=== PATIENT | male | born 1945 | race Caucasian/White ===

== ENCOUNTER → 2023-09-17 08:32 | Outpatient (REF) | payer MEDICARE, OTHER, SELFPAY ==
[2023-09-17 11:37] LABS: Urine Albumin Negative (Neg - Trace); Urine Bilirubin Negative (Negative); Urine Character Clear (Clear); Urine Color Yellow; Urine Glucose Negative (Negative); Urine Ketone Negative (Negative); Urine Leukocyte Negative (Negative); Urine Nitrite Negative (Negative); Urine Occult Blood Negative (Negative); Urine Urobilinogen Negative (Neg - 1+)
[2023-09-17 11:39] LABS: % Basophils 0.9 % (0-2); % Eosinophils 2.2 % (0-6); % Immature Granulocytes 0.2 % (0-0.5); % Lymphocytes 31.4 % (20.5-51.1); % Monocytes 13.6 % (1.7-9.3); % Neutrophils 51.7 % (42.2-75.2); Absolute Basophils 0.1 10^3/uL (0-0.2); Absolute Eosinophils 0.1 10^3/uL (0-0.7); Absolute Lymphocytes 1.7 10^3/uL (1.2-3.4); Absolute Monocytes 0.8 10^3/uL (0.1-0.6); Absolute Neutrophils 2.9 10^3/uL (1.4-6.5); Hematocrit 41.9 % (39.0-52.0); Hemoglobin 14.3 g/dL (13.0-18.0); Mean Corp Hgb Conc. 34.1 g/dL (33.0-37.0); Mean Corpuscular Hgb 33.7 pg (27.0-31.0); Mean Corpuscular Volume 98.8 fL (80.0-94.0); Mean Platelet Volume 10.1 fL (7.4-10.4); Nucleated Red Blood Cells % 0 % (-); Platelet Count 194 10^3/uL (130-400); Red Blood Cell Count 4.24 10^6/uL (4.70-6.10); White Blood Cell Count 5.5 10^3/uL (4.8-10.8)
[2023-09-17 12:08] LABS: ALT (SGPT) 25 U/L (0-50); AST (SGOT) 26 U/L (17-59); Albumin 4.2 g/dl (3.5-5.0); Alkaline Phosphatase 84 U/L (38-126); Blood Urea Nitrogen 18 mg/dl (9-20); Calcium 9.4 mg/dl (8.4-10.2); Carbon Dioxide 25 mmol/L (22-30); Chloride 108 mmol/L (98-107); Glucose 108 mg/dl (70-99); HDL Cholesterol 38 mg/dl; LDL Cholesterol, Calculated 53 mg/dl; Potassium 4.8 mmol/L (3.5-5.1); Sodium 140 mmol/L (135-145); Total Bilirubin 0.9 mg/dl (0.2-1.3); Total Cholesterol 123 mg/dl (50-199); Total Protein 6.6 g/dl (6.3-8.2); Triglyceride 162 mg/dl (10-149); Very Low Density Lipoprotein 32 mg/dl (0-30); eGFR > 60.00
== END ==
LOC: HWLAB 08:32
PROVIDERS: ATTENDING PHYSICIAN Internal Medicine
DX: E87.5 Hyperkalemia (principal); E78.2 Mixed hyperlipidemia; I34.0 Nonrheumatic mitral (valve) insufficiency; E66.9 Obesity, unspecified; I10 Essential (primary) hypertension; D07.5 Carcinoma in situ of prostate; I25.10 Atherosclerotic heart disease of native coronary artery without angina pectoris
CPT/HCPCS: 36415; 80053; 80061; 81003; 83036; 84153; 84154; 85025

== ENCOUNTER 2023-11-23 10:34 | Emergency (ER) | payer MEDICARE, OTHER, SELFPAY ==
[2023-11-23 10:42] VITALS: BP 140/83
[2023-11-23 10:54] VITALS: BMI 32.9
[2023-11-23 11:00] VITALS: BP 139/86
[2023-11-23 11:15] LABS: % Basophils 0.7 % (0-2); % Eosinophils 1.8 % (0-6); % Immature Granulocytes 0.2 % (0-0.5); % Lymphocytes 29.2 % (20.5-51.1); % Monocytes 15.8 % (1.7-9.3); % Neutrophils 52.3 % (42.2-75.2); Absolute Eosinophils 0.1 10^3/uL (0-0.7); Absolute Lymphocytes 1.6 10^3/uL (1.2-3.4); Absolute Monocytes 0.9 10^3/uL (0.1-0.6); Absolute Neutrophils 2.9 10^3/uL (1.4-6.5); Hematocrit 44.9 % (39.0-52.0); Hemoglobin 15.3 g/dL (13.0-18.0); Mean Corp Hgb Conc. 34.1 g/dL (33.0-37.0); Mean Corpuscular Hgb 34.7 pg (27.0-31.0); Mean Corpuscular Volume 101.8 fL (80.0-94.0); Mean Platelet Volume 9.8 fL (7.4-10.4); Nucleated Red Blood Cells % 0 % (-); Platelet Count 177 10^3/uL (130-400); Red Blood Cell Count 4.41 10^6/uL (4.70-6.10); Red Cell Dist. Width 13.2 % (11.5-14.5); White Blood Cell Count 5.6 10^3/uL (4.8-10.8)
[2023-11-23 11:27] LABS: ALT (SGPT) 23 U/L (0-50); AST (SGOT) 28 U/L (17-59); Albumin 4.2 g/dl (3.5-5.0); Alkaline Phosphatase 82 U/L (38-126); Blood Urea Nitrogen 18 mg/dl (9-20); Calcium 9.6 mg/dl (8.4-10.2); Carbon Dioxide 26 mmol/L (22-30); Chloride 106 mmol/L (98-107); Estimated Creatinine Clearance 69 ml/min; Glucose 98 mg/dl (70-99); Lipase 95 U/L (23-300); Potassium 4.7 mmol/L (3.5-5.1); Sodium 143 mmol/L (135-145); Total Protein 6.8 g/dl (6.3-8.2); eGFR > 60.00
[2023-11-23 11:38] LABS: Troponin I < 0.012 ng/ml
[2023-11-23] MEDS: TYLENOL 650 MG PO (12:02)
[2023-11-23] MEDS: MAALOX 30 ML PO (12:03)
--- NOTE | 2023-11-23 12:33 | ED.GENMED ---
History of Present Illness
General
Chief Complaint: Chest Pain
Time Seen by Provider: 11/23/23 11:00
History of Present Illness
History of Present Illness:
78-year-old male with history of permanent atrial fibrillation on Eliquis presents to the emergency department for eval ration of chest pain shortness of breath that began this morning when he woke up approximately 3 hours prior to. Patient reports
the pain is centrally located, feels like indigestion. Denies any radiation of the pain or any worsening with exertion or deep breathing. Denies any back pain nausea, vomiting. Compliant with his anticoagulants. Also reports that he recently
experienced the of a close friend and is expecting to sign her tonight
Past History
Past History
ED Past Medical History: Arrthythmia (Chronic atrial fibrillation), Cancer (Skin cancer), GERD, HTN, Hypercholesterolemia, Valvular disease (Mitral regurgitation), Psychiatric (Anxiety) and Other (BPH, dizziness); Negative IDDM
ED Past Surgical History: Negative Cardiac
Social History
Tobacco: Non-smoker
Alcohol: None
Drug: None
Personal:
Living: with family
Employment: Retired
Family History
Family History: Other (non contributory)
Review of Systems
Review of Systems
Allergies reviewed?: Yes
All Other Systems: ROS reviewed and negative except as documented in HPI and ROS
Phy Exam
Physical Exam
Physical Exam:
GEN: Well appearing, NAD, WDWN
Eyes: PERRLA, EOMs intact, no scleral icterus
HENT: NCAT, oral mucosa moist, no JVD, no cervical adenopathy.
Lungs: CTAB, no wheezes, rales, rhonchi, normal chest wall excursion
Cardiac: Irregular, normal rate, no M/R/G, no peripheral edema. Radial pulses 2+ bilat
Abdomen: S, NT, ND, NABS, no masses or hepatosplenomegaly
Neuro: AO x 3, no focal deficits to BUE/BLE, normal sensation throughout
MSK: No gross deformity or ecchymosis. No edema. No digital clubbing
Skin: No rashes, petechiae. Normal color, no pallor or jaundice.
Psych: Calm, cooperative, proper hygiene
Scores
Heart Score for Chest Pain Patients
STEMI patient?: No
History: Slightly or Non-Suspicious
ECG: Normal
Age: >/= 65 years
Risk Factors: >/= 3 Risk Factors or History of CAD
Troponin: </= Normal Limit
Heart Score for Chest Pain Patients: 4
Heart Score Risk: 20.3% MACE over next 6 weeks
Course
Orders/Labs/Results
Orders:
Orders
11/23/23 10:37
Electrocardiogram (*1) Urgent
Reason for Study: Chest Pain
EKG- Treatment ONCE
11/23/23 11:04
Complete Blood Count/With Diff Urgent
Comprehensive Metabolic Panel Urgent
Lipase Urgent
Troponin I Urgent
11/23/23 11:14
CR Chest - 2 Views Urgent
Comment:
Reason For Exam: chest pain
11/23/23 11:50
Acetaminophen [Tylenol] 650 mg PO NOW STA
Mag Hydrox/Al Hydrox/Simeth [Maalox] 30 ml PO NOW STA
11/23/23 12:01
EKG- Treatment ONCE
11/23/23 13:05
EKG [Electrocardiogram (*1)] Routine
Reason for Study: Chest Pain
11/23/23 13:17
Troponin I Routine
Abnormal Lab Results
11/23/23
11:04
RBC 4.41 L 10^6/uL
(4.70-6.10)
MCV 101.8 H fL
(80.0-94.0)
MCH 34.7 H pg
(27.0-31.0)
Absolute Monos (auto) 0.9 H 10^3/uL
(0.1-0.6)
Monocytes % 15.8 H %
(1.7-9.3)
11/23/23 11:04
11/23/23 11:04
Vital Signs
Initial and Last Documented VS:
Initial Vital Signs
Temp Pulse Resp BP Pulse Ox
98.4 F 90 18 140/83 95
11/23/23 10:42 11/23/23 10:42 11/23/23 10:42 11/23/23 10:42 11/23/23 10:42
Last Documented Vital Signs
Temp Pulse Resp BP Pulse Ox
98.4 F 86 39 139/86 97
11/23/23 10:42 11/23/23 11:15 11/23/23 11:15 11/23/23 11:00 11/23/23 11:15
MDM/Problems Addressed
MDM/Problems Addressed:
Patient's EKGs are nonischemic and initial and repeat troponins are negative. Pain does not sound anginal in nature nevertheless given his high risk and age will refer to cardiology through the chest pain hotline. Doubt PE as He is on
anticoagulants
*Critical Care Note
Total Time (30-74mins, 75-104mins- exclusive of procedures): Not Applicable
ED Attending Note
-
Portions of this chart may have been created with voice recognition software.� Occasional wrong word or��sound alike� substitutions may have occurred due to the inherent limitations of voice recognition software.
Discharge Plan
Departure
Patient Disposition: Home (Routine Discharge)
Date of Disposition: 11/23/23
Time of Disposition: 14:06
Patient with high blood pressure during this ER visit?: No
Discharge Problem:
Atypical chest pain
Instructions: Chest Pain CBC Follow Up
Prescriptions:
No Action
lovastatin 40 MG tablet
40 mg PO QPM
finasteride 5 MG tablet
5 mg PO DAILY
glucosamine HAd-vyl-zomqhloqho 1 EACH tablet
1 tab PO BID
meclizine 12.5 MG tablet
12.5 mg PO DAILYPRN PRN (Reason: As Needed)
apixaban [Eliquis] 5 MG tablet
5 mg PO BID Qty: 0 0RF
Rx Instructions:
Resume Wednesday, 10/07 in PM
lisinopril 10 MG tablet
10 mg PO BID
latanoprost 1 DROP drops
1 drp BOTH EYES HS
spironolactone 12.5 MG tablet
12.5 mg PO DAILY
famotidine 20 MG tablet
20 mg PO BID
metoprolol succinate 25 MG tablet extended release 24 hr
25 mg PO DAILY
finasteride 5 MG tablet
5 mg PO DAILY
Referrals:
Miguel Schrader DO [Family Provider] -
Interventions
Interventions:
*Risk Screen - Suicide Last Done: 11/23/23 10:55
*General Assessment Last Done: 11/23/23 10:55
*Neglect/Abuse Screening Last Done: 11/23/23 10:55
ED- Fall Risk Assessment Last Done: 11/23/23 10:55
*ED COVID-19 Vaccine History Last Done: 11/23/23 10:55
*Nursing Disposition Last Done: 11/23/23 14:14
ED- Cardiac Assessment Last Done: 11/23/23 10:55
Discharge Date and Time
Discharge Date/Time: 11/23/23 14:25
Print Language: BRITISH
[2023-11-23 14:03] LABS: Troponin I < 0.012 ng/ml
== END 2023-11-23 14:25 | disposition home or self-care (01) ==
LOC: EMR 10:34
PROVIDERS: Physician Assistant; EMERGENCY PHYSICIAN Emergency Medicine; FAMILY PHYSICIAN Internal Medicine
DX: R07.89 Other chest pain (principal); I48.20 Chronic atrial fibrillation, unspecified; E78.00 Pure hypercholesterolemia, unspecified; I10 Essential (primary) hypertension; K21.9 Gastro-esophageal reflux disease without esophagitis; Z85.828 Personal history of other malignant neoplasm of skin; Z79.01 Long term (current) use of anticoagulants
CPT/HCPCS: 99285; 71046; 80053; 83690; 84484; 85025; 93005

== ENCOUNTER → 2023-12-17 14:14 | Outpatient (REF) | payer MEDICARE, OTHER, SELFPAY | LOC: HWRCS 14:14 | PROVIDERS: ATTENDING PHYSICIAN Nurse Practitioner; FAMILY PHYSICIAN Internal Medicine | DX: I25.10 Atherosclerotic heart disease of native coronary artery without angina pectoris (principal); R07.89 Other chest pain; I42.0 Dilated cardiomyopathy | CPT/HCPCS: 93306 ==

== ENCOUNTER → 2023-12-21 11:06 | Outpatient (REF) | payer MEDICARE, OTHER, SELFPAY | LOC: DHCBC/DCA 11:06 | PROVIDERS: ATTENDING PHYSICIAN Nurse Practitioner; FAMILY PHYSICIAN Internal Medicine | DX: I25.10 Atherosclerotic heart disease of native coronary artery without angina pectoris (principal); R07.89 Other chest pain; I42.0 Dilated cardiomyopathy | CPT/HCPCS: 78452; 93017; A9500; J2785 ==

== ENCOUNTER 2024-01-03 08:07 | Day surgery (SDC) | payer MEDICARE, OTHER, SELFPAY ==
[2023-12-29 10:46] VITALS: BMI 34.4
[2024-01-03] VITALS (16 sets, daily range): BP systolic 69–147; BP diastolic 53–99
[2024-01-03 13:06] LABS: ACT-LR - POC 334 Seconds (116-155)
--- NOTE | 2024-01-05 10:17 | ITS.CL.PN ---
Addendum entered and electronically signed by Marvel Montanez MD 01/05/24 10:42:
Correction to the PROCEDURES section:
PROCEDURES:
1. Coronary angiography
2. Left heart catheterization
3. iFR of LAD
4. iFR of LCx
Original Note:
Desktop Administrator - Procedure Note
Procedure
Procedure Note:
CARDIAC CATHETERIZATION REPORT
Date of Procedure: 01/03/2024
Referring: Dr. Steve Miranda MD
Indication: anginal chest pain, high-risk nuclear stress test
PROCEDURES:
1. Coronary angiography
2. Bypass graft angiography
3. Left heart catheterization
4. iFR of LAD
5. iFR of LCx
ACCESS:
6 Pakistani right radial artery (radial loop requiring Castro wire to navigate)
CATHETERS:
1. 6 [place] AR1 diagnostic (high anterior RCA, JR4 did not reach)
2. 6 [place] JL3.5 diagnostic
3. 6 [place] XB3.5 guide (required mother-daughter technique to advanced past radial loop with use of a 5F JR4 diagnostic catheter within the guide catheter)
HEMODYNAMIC DATA:
LV 122/11 (EDP 15) mmHg
AO 122/81 (mean 97) mmHg
CORONARY ANGIOGRAPHY
Dominance: right
LM: large vessel with mild mid-distal shaft disease
LAD: large vessel giving rise to one large diagonal branch. There is diffuse mild disease in the LAD. The is angiographic slow flow to the apical LAD. The distal LAD was further interrogated by iFR.
LCx: large vessel giving rise to a large OM1 and small OM2. There is a 50% stenosis in the ostial OM1 that was further interrogated by iFR. There are otherwise mild luminal irregularities.
RCA: large vessel with high anterior takeoff that gives rise to a moderate caliber RPDA and several small RPL branches. There is mild non-obstructive disease.
iFR of OM1
The LM was engaged with a XB3.5 and a pressure wire normalized in the left main ostium after flushing the system. The wire was advanced past the OM1 stenosis and iFR recorded at 1.0 (non-significant). On iFR pullback there was no drift on return of
the wire to the LM.
iFR of LAD
The pressure wire was redirected to the LAD and re-normalized, followed by advancement to the distal LAD where iFR was recorded at 0.93 (non-significant). On pullback the iFR had a diffuse pattern with return to 1.0 at the LM ostium. Angiography
demonstrated no complication int he LCx or LAD.
Radiation dose (mGy): 1007
DAP (cm2.Gy): 66.96
Fluoroscopy time (minutes): 11.9
CONCLUSIONS:
1. Non-obstructive coronary artery disease in a right dominant system. Negative iFR of the focal OM1 stenosis and negative iFR of the distal LAD.
2. Evidence of angiographic slow flow to the apical LAD suggestive of possible microvascular disease corresponding to the region of stress test positivity.
3. Mildly elevated LV filling pressure and no aortic stenosis.
RECOMMENDATIONS:
1. Aggressive secondary prevention of coronary artery disease.
2. Initiation of amlodipine for possible micro-vascular disease. Can also consider long acting nitrate in future.
Copy to: Dr. Steve Miranda MD
Signed: Marvel Montanez MD, PhD
== END 2024-01-03 17:24 | disposition home or self-care (01) ==
LOC: CATH 08:07
PROVIDERS: ATTENDING PHYSICIAN Student in an Organized Health Care Education/Training Program; FAMILY PHYSICIAN Internal Medicine; OTHER PHYSICIAN Internal Medicine Cardiovascular Disease
DX: I25.119 Atherosclerotic heart disease of native coronary artery with unspecified angina pectoris (principal); I48.91 Unspecified atrial fibrillation; I10 Essential (primary) hypertension; E78.00 Pure hypercholesterolemia, unspecified; I34.0 Nonrheumatic mitral (valve) insufficiency; K21.9 Gastro-esophageal reflux disease without esophagitis; Z85.828 Personal history of other malignant neoplasm of skin; Z79.01 Long term (current) use of anticoagulants
CPT/HCPCS: 93799 ×2; C1769; 85347; 93458; C1887; C1894; Q9967

== ENCOUNTER → 2024-02-09 18:42 | Outpatient (REF) | payer MEDICARE, OTHER, SELFPAY | LOC: DHSLP 18:42 | PROVIDERS: ATTENDING PHYSICIAN Internal Medicine | DX: G47.33 Obstructive sleep apnea (adult) (pediatric) (principal) | CPT/HCPCS: 95800 ==

== ENCOUNTER → 2024-02-14 11:00 | Outpatient (REF) | payer MEDICARE, OTHER, SELFPAY ==
[2024-02-16 22:04] LABS: PSA Total 7.6 ng/mL (0.0-4.0)
== END ==
LOC: HWLAB 11:00
PROVIDERS: ATTENDING PHYSICIAN Specialist; FAMILY PHYSICIAN Internal Medicine
DX: D07.5 Carcinoma in situ of prostate (principal); R97.20 Elevated prostate specific antigen [PSA]
CPT/HCPCS: 36415; 84153; 84154

== ENCOUNTER → 2024-04-06 09:29 | Outpatient (REF) | payer MEDICARE, OTHER, SELFPAY | LOC: MRI 3T 09:29 | PROVIDERS: ATTENDING PHYSICIAN Specialist; FAMILY PHYSICIAN Internal Medicine | DX: R97.20 Elevated prostate specific antigen [PSA] (principal) | CPT/HCPCS: 72197; A9575 ==

== ENCOUNTER → 2024-05-09 12:17 | Outpatient (REF) | payer MEDICARE, OTHER, SELFPAY | LOC: CLAB 12:17 | PROVIDERS: ATTENDING PHYSICIAN Specialist | DX: R97.20 Elevated prostate specific antigen [PSA] (principal) | CPT/HCPCS: 88305 ==

== ENCOUNTER → 2024-10-11 09:36 | Outpatient (REF) | payer MEDICARE, OTHER, SELFPAY ==
[2024-10-11 12:15] LABS: Hematocrit 34.6 % (39.0-52.0); Hemoglobin 11.8 g/dL (13.0-18.0); Mean Corp Hgb Conc. 34.1 g/dL (33.0-37.0); Mean Corpuscular Volume 103.0 fL (80.0-94.0); Platelet Count 162 10^3/uL (130-400); Red Cell Dist. Width 14.1 % (11.5-14.5)
[2024-10-11 12:29] LABS: ALT (SGPT) 22 U/L (0-50); AST (SGOT) 24 U/L (17-59); Albumin 4.3 g/dl (3.5-5.0); Alkaline Phosphatase 61 U/L (38-126); Blood Urea Nitrogen 17 mg/dl (9-20); Calcium 9.4 mg/dl (8.4-10.2); Carbon Dioxide 23 mmol/L (22-30); Chloride 110 mmol/L (98-107); Glucose 104 mg/dl (70-99); HDL Cholesterol 40 mg/dl; LDL Cholesterol, Calculated 46 mg/dl; Potassium 4.6 mmol/L (3.5-5.1); Sodium 141 mmol/L (135-145); Total Protein 6.8 g/dl (6.3-8.2); Very Low Density Lipoprotein 51 mg/dl (0-30); eGFR > 60.00
[2024-10-11 12:34] LABS: Glycohemoglobin (HgbA1c) 5.8 % (4.0-5.6)
[2024-10-11 12:36] LABS: Urine Character Clear (Clear)
[2024-10-11 12:39] LABS: Vitamin D, 25-OH*** 34.9 ng/mL (30-80)
[2024-10-11 12:57] LABS: Urine Squamous Cell 0-2 /LPF (Few)
[2024-10-11 12:58] LABS: Absolute Neutrophils -Man Diff 1.3 10^3/uL (1.4-6.5); Anisocytosis 1+; Hypochromasia 1+; Normal RBC Morphology No; Platelets Checked Yes; Polychromasia 1+; Stomatocytes 1+; Urine Red Blood Cell 0-2 /HPF (0-2)
[2024-10-11 12:59] LABS: Total Cells Counted 100
== END ==
LOC: HWLAB 09:36
PROVIDERS: ATTENDING PHYSICIAN Internal Medicine
DX: I10 Essential (primary) hypertension (principal); E78.2 Mixed hyperlipidemia; E66.9 Obesity, unspecified; K21.9 Gastro-esophageal reflux disease without esophagitis; I48.19 Other persistent atrial fibrillation; R53.83 Other fatigue; R73.01 Impaired fasting glucose; E55.9 Vitamin D deficiency, unspecified
CPT/HCPCS: 36415; 80053; 80061; 81003; 81015; 82306; 83036; 84100; 85025

== ENCOUNTER → 2024-11-30 11:00 | Outpatient (REF) | payer MEDICARE, OTHER, SELFPAY ==
[2024-11-30 17:40] LABS: PSA, Total - Diagnostic 0.08 ng/ml (0.0-4.0)
== END ==
LOC: HWLAB 11:00
PROVIDERS: ATTENDING PHYSICIAN Family Medicine Geriatric Medicine; FAMILY PHYSICIAN Internal Medicine
DX: Z85.46 Personal history of malignant neoplasm of prostate (principal)
CPT/HCPCS: 36415; 84153

== ENCOUNTER → 2024-12-18 14:40 | Outpatient (REF) | payer MEDICARE, OTHER, SELFPAY | LOC: HWRCS 14:40 | PROVIDERS: ATTENDING PHYSICIAN Nurse Practitioner; FAMILY PHYSICIAN Internal Medicine | DX: I42.8 Other cardiomyopathies (principal); I48.0 Paroxysmal atrial fibrillation; I34.0 Nonrheumatic mitral (valve) insufficiency | CPT/HCPCS: 93306 ==

== ENCOUNTER → 2024-12-27 11:13 | Outpatient (REF) | payer MEDICARE, OTHER, SELFPAY ==
[2024-12-27 16:11] LABS: Hematocrit 35.7 % (39.0-52.0); Hemoglobin 11.9 g/dL (13.0-18.0); Mean Corp Hgb Conc. 33.3 g/dL (33.0-37.0); Mean Corpuscular Volume 108.2 fL (80.0-94.0); Nucleated Red Blood Cells % 0 % (-); Platelet Count 172 10^3/uL (130-400); Red Cell Dist. Width 12.8 % (11.5-14.5)
[2024-12-27 16:29] LABS: ALT (SGPT) 24 U/L (0-50); AST (SGOT) 24 U/L (17-59); Albumin 4.1 g/dl (3.5-5.0); Alkaline Phosphatase 63 U/L (38-126); Blood Urea Nitrogen 20 mg/dl (9-20); Calcium 9.4 mg/dl (8.4-10.2); Carbon Dioxide 26 mmol/L (22-30); Chloride 109 mmol/L (98-107); Glucose 99 mg/dl (70-99); Potassium 4.5 mmol/L (3.5-5.1); Sodium 141 mmol/L (135-145); Total Protein 6.9 g/dl (6.3-8.2); eGFR > 60.00
== END ==
LOC: HWLAB 11:13
PROVIDERS: ATTENDING PHYSICIAN Nurse Practitioner; FAMILY PHYSICIAN Internal Medicine
DX: I48.19 Other persistent atrial fibrillation (principal); I42.8 Other cardiomyopathies; I25.10 Atherosclerotic heart disease of native coronary artery without angina pectoris
CPT/HCPCS: 36415; 80053; 84443; 85025